=== PATIENT | male | born 1950 | race Caucasian/White ===

== ENCOUNTER 2017-01-19 23:12 | Emergency (ER) | payer SELFPAY ==
[~2017-01-19] VITALS: Ht 182.9 cm; Wt 96.4 kg
[2017-01-19 23:13] VITALS: BP 151/81
[2017-01-19] MEDS ORDERED: LIDOCAINE 1%, 20ML ONE (23:58)
[2017-01-19] MEDS ORDERED: BUPIVACAINE 0.25% ONE (23:58)
[2017-01-20] MEDS ORDERED: LIDOCAINE 1%, 20ML SQ ONE
[2017-01-20] MEDS ORDERED: BUPIVACAINE/PF-EPI 0.25% 1:200K SQ ONE
== END 2017-01-20 00:07 | disposition home or self-care (01) ==
LOC: ED 23:59
DX: K04.7 Periapical abscess without sinus (principal); K02.9 Dental caries, unspecified
CPT/HCPCS: 99283

== ENCOUNTER 2017-03-19 18:57 | Emergency (ER) | payer OTHER ==
[~2017-03-19] VITALS: Ht 177.8 cm; Wt 96.2 kg
[2017-03-19 18:59] VITALS: BP 133/80
== END 2017-03-19 19:28 | disposition home or self-care (01) ==
LOC: ED 19:22
DX: K02.9 Dental caries, unspecified (principal); K08.89 Other specified disorders of teeth and supporting structures
CPT/HCPCS: 99283

== ENCOUNTER 2017-03-20 02:30 | Emergency (ER) | payer SELFPAY ==
[~2017-03-20] VITALS: Ht 182.9 cm; Wt 96.8 kg
[2017-03-20 02:31] VITALS: BP 117/76
== END 2017-03-20 04:20 | disposition left against medical advice (07) ==
LOC: ED 02:45
DX: T50.905A Adverse effect of unspecified drugs, medicaments and biological substances, initial encounter (principal); K04.7 Periapical abscess without sinus; K08.89 Other specified disorders of teeth and supporting structures; Y92.9 Unspecified place or not applicable
CPT/HCPCS: 99281

== ENCOUNTER 2017-05-29 17:02 | Emergency (ER) | payer OTHER ==
[~2017-05-29] VITALS: Ht 182.9 cm; Wt 93.7 kg
[2017-05-29 17:08] VITALS: BP 135/74
[2017-05-29 17:52] LABS: RAPID INFLUENZA A Negative (Negative); RAPID INFLUENZA B POSITIVE (Negative)
[2017-05-29] MEDS ORDERED: HYDROcodone/APAP 5/325 TABLET PO STA (18:32)
[2017-05-29] MEDS ORDERED: HYDROcodone/APAP 5/325 TABLET ONE (18:51)
== END 2017-05-29 19:00 | disposition home or self-care (01) ==
LOC: ED 18:54
DX: J11.1 Influenza due to unidentified influenza virus with other respiratory manifestations (principal); J40 Bronchitis, not specified as acute or chronic; K08.89 Other specified disorders of teeth and supporting structures
CPT/HCPCS: 71020; 87400; 99285

== ENCOUNTER 2018-01-17 20:42 | Emergency (ER) | payer SELFPAY ==
[~2018-01-17] VITALS: Ht 180.3 cm; Wt 80.0 kg
[2018-01-17] MEDS ORDERED: HYDROcodone/APAP 5/325 TABLET ONE (21:55)
[2018-01-17] MEDS ORDERED: METHOCARBAMOL 750 MG TABLET ONE (21:55)
[2018-01-17] MEDS ORDERED: METHOCARBAMOL 750 MG TABLET PO ONE (22:00)
[2018-01-17] MEDS ORDERED: HYDROcodone/APAP 5/325 TABLET PO ONE (22:00)
[2018-01-17 23:16] VITALS: BP 154/84
== END 2018-01-17 23:17 | disposition home or self-care (01) ==
LOC: ED 23:10
DX: S49.92XA Unspecified injury of left shoulder and upper arm, initial encounter (principal); S89.92XA Unspecified injury of left lower leg, initial encounter; K04.7 Periapical abscess without sinus; X50.0XXA Overexertion from strenuous movement or load, initial encounter; Y93.89 Activity, other specified; Y92.89 Other specified places as the place of occurrence of the external cause; Y99.8 Other external cause status
CPT/HCPCS: 99284

== ENCOUNTER 2018-02-21 00:28 | Emergency (ER) | payer SELFPAY ==
[~2018-02-21] VITALS: Ht 182.9 cm; Wt 91.0 kg
[2018-02-21 00:31] VITALS: BP 145/77
== END 2018-02-21 02:15 | disposition left against medical advice (07) ==
LOC: ED 02:09
DX: M54.5 Low back pain (principal); M54.6 Pain in thoracic spine; K08.89 Other specified disorders of teeth and supporting structures
CPT/HCPCS: 99281

== ENCOUNTER 2020-03-26 15:46 | Emergency (ER) | payer SELFPAY ==
[~2020-03-26] VITALS: Ht 182.9 cm; Wt 93.9 kg
[2020-03-26 15:49] VITALS: BP 130/77
[2020-03-26] MEDS ORDERED: PENICILLIN VK 500MG TABLET ONE (16:06)
[2020-03-26] MEDS ORDERED: HYDROcodone/APAP 5/325 TABLET ONE (16:06)
--- NOTE | 2020-03-26 16:20 | NUR ---
Patient given discharge instructions and they have confirmed that they understand the instructions. Patient ambulatory with steady gait.
[2020-03-26] MEDS ORDERED: HYDROcodone/APAP 5/325 TABLET PO ONE (16:30)
[2020-03-26] MEDS ORDERED: PENICILLIN VK 500MG TABLET PO ONE (16:30)
== END 2020-03-26 16:21 | disposition home or self-care (01) ==
LOC: ED 16:00
DX: K04.7 Periapical abscess without sinus (principal); K02.9 Dental caries, unspecified
CPT/HCPCS: 99283

== ENCOUNTER 2020-07-29 18:30 | Emergency (ER) | payer SELFPAY ==
[~2020-07-29] VITALS: Ht 177.8 cm; Wt 93.0 kg
[2020-07-29 18:33] VITALS: BP 129/74
[2020-07-29] MEDS ORDERED: IBUPROFEN 800 MG TABLET ONE (18:54)
--- NOTE | 2020-07-29 18:55 | NUR ---
Pt medicated per MAR.
[2020-07-29] MEDS ORDERED: IBUPROFEN 800 MG TABLET PO ONE (19:00)
== END 2020-07-29 20:10 | disposition home or self-care (01) ==
LOC: ED 19:01
DX: K02.9 Dental caries, unspecified (principal); R51.9 Headache, unspecified; Z72.9 Problem related to lifestyle, unspecified
CPT/HCPCS: 99283

== ENCOUNTER 2020-09-13 19:10 | Emergency (ER) | payer SELFPAY ==
[~2020-09-13] VITALS: Ht 177.8 cm; Wt 92.6 kg
[2020-09-13 19:11] VITALS: BP 132/77
[2020-09-13] MEDS ORDERED: HYDROcodone/APAP 5/325 TABLET ONE (19:50)
[2020-09-13] MEDS ORDERED: HYDROcodone/APAP 5/325 TABLET PO ONE (20:00)
--- NOTE | 2020-09-13 20:22 | NUR ---
PT ARGUMENTATIVE AND AGGRESSIVE WITH PROVIDER, DICTATING CARE AND RESUFING OFFERED PRESCIPTIONS. PROVIDER IN ROOM TO ASSESS, PT GIVEN GOOD RX CARD AND INSTRUCTIONS FOR OFFERED MEDICATIONS. PT FINALLY AGREES AND AMBULATED OUT OF ED WITH ALL BELONGINGS, PRESCRIPTIONS, AND INSTRUCTIONS.
== END 2020-09-13 20:25 | disposition home or self-care (01) ==
LOC: ED 20:19
DX: K02.9 Dental caries, unspecified (principal); F17.210 Nicotine dependence, cigarettes, uncomplicated
CPT/HCPCS: 99283

== ENCOUNTER 2020-10-29 07:12 | Emergency (ER) | payer SELFPAY ==
[~2020-10-29] VITALS: Ht 182.9 cm; Wt 94.1 kg
--- NOTE | 2020-10-29 07:23 | NUR ---
PER PT "MY TOOTH BROKE OFF, THERES PUS NOW COMING OUT" "MY DENTIST HAD A IN THE FAMILY, AND I HAVE TO HAVE A NEW DENTIST AND ORAL SURGEN" DR. MURRAY AT BEDSIDE FOR EVALUATION. PT OBSERVED TO HAVE POOR DENTATION. GUM APPEARS RED AND IRRIATED WHERE TOOTH CAME OUT.
--- NOTE | 2020-10-29 07:26 | NUR ---
PT ASKING MD FOR SOME ANTIBIOTICS.
[2020-10-29] MEDS ORDERED: OXYcodone/APAP 7.5/325MG TABLET PO ONE (07:30)
[2020-10-29] MEDS ORDERED: OXYcodone/APAP 7.5/325MG TABLET ONE (07:37)
[2020-10-29 07:42] VITALS: BP 134/77
--- NOTE | 2020-10-29 07:43 | NUR ---
pt medicated per emar. vss. attached to monitors. sitting up in bed.
--- NOTE | 2020-10-29 08:11 | NUR ---
Patient discharge instructions and they have confirmed that they understand the instructions. Patient ambulatory with steady gait. Patient states he has safe ride home.
== END 2020-10-29 08:12 | disposition home or self-care (01) ==
LOC: ED 07:45
DX: K04.7 Periapical abscess without sinus (principal)
CPT/HCPCS: 99283

== ENCOUNTER 2021-02-26 20:18 | Emergency (ER) | payer OTHER ==
[~2021-02-26] VITALS: Ht 177.8 cm; Wt 88.4 kg
[2021-02-26 20:27] VITALS: BP 127/78
[2021-02-26] MEDS ORDERED: LIDOCAINE-MPF 1%, 2ML ONE (20:48)
[2021-02-26] MEDS ORDERED: BUPIVACAINE 0.25% ONE (20:48)
[2021-02-26] MEDS ORDERED: HYDROcodone/APAP 5/325 TABLET ONE (20:51)
[2021-02-26] MEDS ORDERED: BUPIVACAINE 0.25% INFIL ONE (21:00)
[2021-02-26] MEDS ORDERED: LIDOCAINE 1%, 2ML INFIL ONE (21:00)
[2021-02-26] MEDS ORDERED: HYDROcodone/APAP 5/325 TABLET PO ONE (21:30)
== END 2021-02-26 21:28 | disposition home or self-care (01) ==
LOC: ED 20:28
DX: K02.9 Dental caries, unspecified (principal)
CPT/HCPCS: 99283